=== PATIENT | male | born 1965 | race American Indian/Alaskan Native ===

== ENCOUNTER 2016-07-08 07:44 | Emergency (ER) | payer OTHER ==
[2016-07-08] MEDS ORDERED: FLEXERIL PO ONE (09:46)
[2016-07-08] MEDS ORDERED: PERCOCET 5/325 PO ONE (09:46)
[2016-07-08] MEDS ORDERED: TORADOL IM ONE (09:46)
[2016-07-08] MEDS ORDERED: DELTASONE PO ONE (09:46)
[2016-07-08] MEDS ORDERED: CATAPRES PO ONE (10:40)
[2016-07-08 11:08] VITALS: BP 150/100
--- NOTE | 2016-07-08 11:33 | Emergency Department Report ---
Entered by KIM BARKLEY, acting as scribe for GALE STEVENS PA. ED Back Pain/Injury HPI - General Chief Complaint: Back Pain/Injury Stated Complaint: BACK PAIN AND FOOT NUMBNESS/JOB Time Seen by Provider: 07/08/16 08:34 Source: patient, family Limitations: No Limitations - History of Present Illness Initial Comments: 50 year old male with a PMHx of HTN and asthma presents to the ED c/o lower back pain that began a week ago. Patient rates pain a 10 with radiation to the his left leg. Denies abdominal pain, dysuria, urgency, and frequency. Patient states that he was injured on the job 6 years ago and suffered from 2 lower back herniated discs, which he did not receive any medication or therapy. Reports not taking blood pressure medication due to PCP's orders. Denies tobacco use, but reports EtOH consumption occasionally. He also reports that his blood pressure has been stable and elevates when he is in pain. MD Complaint: back pain Onset/Timin -: week(s) Similar Symptoms Previously: Yes (6 years ago after job injury) Place: home Radiation: left leg Severity: moderate Severity scale (0 -10): 9 Quality: aching Consistency: constant Improves With: immobilization Worsens With: walking Context: turning/twisting, bending, other (previous injured her back with herniated disc) Associated Symptoms: numbness (right leg), difficulty walking. denies: confusion, weakness, chest pain, cough, difficulty urinating, diaphoresis, incontinence, fever/chills, constipation, headaches, abdominal pain, loss of appetite, malaise, nausea/vomiting, shortness of breath, syncope, other (dysuria , urgency, and frequency) Treatments Prior to Arrival: NSAIDS - Related Data Previous Rx's Medication Instructions Recorded Last Taken Type Cyclobenzaprine [Flexeril] 10 mg PO TID PRN #15 tablet 07/08/16 Unknown Rx traMADol [Ultram] 50 mg PO Q6HR PRN #20 tablet 07/08/16 Unknown Rx Allergies Allergy/AdvReac Type Severity Reaction Status Date / Time acetaminophen Allergy Unknown Verified 07/08/16 07:53 [From [facility]] chlorpheniramine maleate Allergy Unknown Verified 07/08/16 07:53 [From [facility]] dextromethorphan HBr Allergy Unknown Verified 07/08/16 07:53 [From [facility]] guaifenesin Allergy Unknown Verified 07/08/16 07:53 [facility] phenylpropanolamine HCl Allergy Unknown Verified 07/08/16 07:53 [facility] pseudoephedrine HCl Allergy Unknown Verified 07/08/16 07:53 [From [facility]] ED Review of Systems Comment: All other systems reviewed and negative Constitutional: denies: chills, fever Eyes: denies: vision change Respiratory: no symptoms reported Cardiovascular: denies: chest pain, palpitations, edema, syncope Gastrointestinal: denies: abdominal pain, nausea, vomiting Genitourinary: denies: urgency, dysuria, frequency Musculoskeletal: back pain (lower), other (left leg pain from radiation of back pain) ED Past Medical Hx - Past Medical History Previous Medical History?: Yes Hx Hypertension: Yes (and off blood pressure medication a year ago by primary care.) Hx Asthma: Yes Additional medical history: Back pain. Herniated disc and back - Surgical History Past Surgical History?: No - Family History Family history: hypertension - Social History Smoking Status: Never Smoker Substance Use Type: Alcohol - Medications Home Medications: Home Medications Medication Instructions Recorded Confirmed Last Taken Type Cyclobenzaprine [Flexeril] 10 mg PO TID PRN #15 tablet 07/08/16 Unknown Rx traMADol [Ultram] 50 mg PO Q6HR PRN #20 tablet 07/08/16 Unknown Rx ED Physical Exam - General Limitations: No Limitations General appearance: alert, in no apparent distress, obese - Head Head exam: Present: atraumatic, normocephalic - Eye Eye exam: Present: normal appearance, EOMI Pupils: Present: normal accommodation - ENT ENT exam: Present: normal exam, mucous membranes moist - Neck Neck exam: Present: normal inspection, full ROM. Absent: tenderness, lymphadenopathy - Respiratory Respiratory exam: Present: normal lung sounds bilaterally. Absent: respiratory distress, wheezes, rales, rhonchi, stridor, chest wall tenderness - Cardiovascular Cardiovascular Exam: Present: regular rate, normal rhythm, normal heart sounds - GI/Abdominal GI/Abdominal exam: Present: soft, normal bowel sounds. Absent: distended, tenderness, guarding, rebound - Extremities Exam Extremities exam: Present: normal inspection, full ROM. Absent: tenderness, pedal edema, joint swelling - Back Exam Back exam: Present: normal inspection, full ROM, tenderness (lower back). Absent: CVA tenderness (R), CVA tenderness (L), muscle spasm, paraspinal tenderness, vertebral tenderness, rash noted - Expanded Back Exam Expanded Back exam: Absent: saddle anesthesia Back exam: Positive Straight Leg Raise: Left, Negative Straight Leg Raising: Right - Neurological Exam Neurological exam: Present: alert, oriented X3, abnormal gait (due to pain), reflexes normal - Expanded Neurological Exam Expanded Neurological exam: Absent: innattentive, memory loss-remote event, memory loss- recent event, ataxia, receptive aphasia, expressive aphasia, total aphasia, tremor, protecting the airway Patient oriented to: Present: person, place, time Speech: Present: fluid speech Cranial nerves: EOM's Intact: Normal, Gag Reflex: Normal, Nystagmus: Normal, Facial Sensation: Normal Cerebellar function: Romberg: Normal Upper motor neuron: Pronator Drift: Normal, Sensory Extinction: Normal Sensory exam: Upper Extremity Light Touch: Normal, Upper Extremity Temperature: Normal, UE 2 Point Discrimination: Normal, Lower Extremity Light Touch: Normal, Lower Extremity Temperature: Normal, LE 2 Point Discrimination: Normal Motor strength exam: RUE: 5, LUE: 5, RLE: 5, LLE: 5 DTR: bicep (R): 2+, bicep (L): 2+, tricep (R): 2+, tricep (L): 2+, knee (R): 2+ , knee (L): 2+, ankle (R): 2+, ankle (L): 2+ Best Eye Response (Arcade): (4) open spontaneously Best Motor Response (Arcade): (6) obeys commands Best Verbal Response (Arcade): (5) oriented Pepe Total: 15 - Psychiatric Psychiatric exam: Present: normal affect, normal mood - Skin Skin exam: Present: warm, dry, intact, normal color. Absent: rash ED Course Vital Signs 07/08/16 07/08/16 07/08/16 07:50 10:37 10:59 Temperature 98.1 F Pulse Rate 78 78 68 Respiratory 20 20 18 Rate Blood Pressure 161/113 Blood Pressure [Left] Blood Pressure 170/114 [Right] O2 Sat by Pulse 99 98 98 Oximetry 07/08/16 11:07 Temperature Pulse Rate Respiratory Rate Blood Pressure Blood Pressure 150/100 [Left] Blood Pressure [Right] O2 Sat by Pulse Oximetry - Reevaluation(s) Reevaluation #1: 07/08/16 11:23 07/08/16 11:25 Patient was given Deltasone 60 mg by mouth, Toradol 60 mg IM, Flexeril 10 mg by mouth, Percocet 5/325 2 tablets emergency room to cover back pain. His blood pressure remained elevated after pain medication and reassessment said he was given clonidine 0.2 mg by mouth now his blood pressure is 90 150/100. ED Medical Decision Making - Medical Decision Making ED course: Patient with diagnosis of acute exacerbation of chronic back pain with lumbar radiculopathy.Patient was given Deltasone 60 mg by mouth, Toradol 60 mg IM, Flexeril 10 mg by mouth, Percocet 5/325 2 tablets emergency room to cover back pain. His blood pressure remained elevated after pain medication and reassessment said he was given clonidine 0.2 mg by mouth now his blood pressure is 90 150/100. I discussed with patient that he will need to follow- up with primary care physician which I will assign him a primary care physician and also orthopedic doctor. Primary care physician is Martina his blood pressure and orthopedic doctor for chronic lower back pain. If that he just transferred from [place] with his job and he doesn't have any doctors in [place] area. She is able to ambulate further evaluation and denies any numbness in his leg. Blood pressure is down to 150/100 after given clonidine. Instructed to the patient to keep a log of his blood pressure and to take to primary care visit. He was taken off his blood pressure medication a year ago by his primary care doctor in [place] because he said that he lost a lot of weight and his blood pressure has stabilized. I discussed with patient to continue with lifestyle modification and once pain is relieved then he can start taking blood pressure. Patient discharged home with prescription for Flexeril and Ultram. ED Disposition Clinical Impression: Acute exacerbation of chronic low back pain, Lumbar radiculopathy Hypertension Qualifiers: Hypertension type: essential hypertension Qualified Code(s): I10 - Essential ( primary) hypertension Disposition: DISCHARGED TO HOME OR SELFCARE Is pt being admited?: No Does the pt Need Aspirin: No Condition: Stable Instructions: Hypertension (ED), Chronic Back Pain (ED), Lumbar Radiculopathy ( ED), DASH Eating Plan (ED), Heart Healthy Diet (ED) Additional Instructions: Please rest. Medication as prescribed. Follow up primary care doctor and orthopedic doctor that we will refer to. Please keep a log of his blood pressure and burning to primary care physician. Prescriptions: Cyclobenzaprine [Flexeril] 10 mg PO TID PRN #15 tablet PRN Reason: Muscle Spasm traMADol [Ultram] 50 mg PO Q6HR PRN #20 tablet PRN Reason: Pain Referrals: STEPHANIA GALARZA MD [Staff Physician] - 2-3 Days YASMINE MAYA MD [Staff Physician] - 2-3 Days Forms: Work/School Release Form(ED) This documentation as recorded by the RUBIA meehan JASMINE,accurately reflects the service I personally performed and the decisions made by ,GALE STEVENS PA.
== END 2016-07-08 11:40 | disposition home or self-care (01) ==
LOC: ED 07:44
DX: M54.16 Radiculopathy, lumbar region (principal); I10 Essential (primary) hypertension; J45.909 Unspecified asthma, uncomplicated; Z88.8 Allergy status to other drugs, medicaments and biological substances; Z88.6 Allergy status to analgesic agent
CPT/HCPCS: 96372; 99282; J1885; J7512